=== PATIENT | male | born 1955 | race Caucasian/White ===

== ENCOUNTER 2018-07-03 12:50 | Inpatient (IN) | payer OTHER ==
[~2018-07-03] VITALS: Ht 165.1 cm; Wt 70.0 kg
--- NOTE | 2018-07-03 13:06 | NUR ---
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 SR PER MONITOR. AUTO BP AND PULSE OX IN PLACE. Addendum: 07/03/18 at 1320 by JASON PT STATED "LAEFT ARM FELT A LITTLE NUMB EARLIER AND HAS SOME HEAVINESS IN CONNOR TOES"
--- NOTE | 2018-07-03 13:12 | NUR ---
PT IN CT
[2018-07-03 13:20] LABS: BASOPHILS # (AUTO) 0.02 x10^3/uL (0-0.1); BASOPHILS % (AUTO) 0 % (0-1); EOSINOPHILS # (AUTO) 0.06 x10^3/uL (0-0.4); EOSINOPHILS % (AUTO) 1 % (1-7); LYMPHOCYTES # (AUTO) 1.12 x10^3/uL (1-3.4); LYMPHOCYTES % (AUTO) 21 % (22-44); MD NO; MEAN CORPUSCULAR HEMOGLOBIN 30.2 pg (27.5-34.5); MEAN CORPUSCULAR HGB CONC 33.2 g/dL (33.2-36.2); MEAN PLATELET VOLUME 9.2 fL (7.4-10.4); MONOCYTES # (AUTO) 0.47 x10^3/uL (0.2-0.8); MONOCYTES % (AUTO) 9 % (2-9); NEUTROPHILS # (AUTO) 3.62 x10^3/uL (1.8-6.8); NEUTROPHILS % (AUTO) 68 % (42-75); PLATELET COUNT 186 x10^3/uL (130-400); RED CELL DISTRIBUTION WIDTH 13.7 % (9.4-14.8)
--- NOTE | 2018-07-03 13:27 | NUR ---
PT RETURN TO ROOM FROM CT. PER ABRAN ALVAREZ, PT WAS IN SR WITH JOSEEMINY PVC'S AT TIMES. CURRENTLY SR WITH [facility] PAC'S NOTED. PT DENIES PAIN
[2018-07-03 13:30] LABS: PROTHROMBIN TIME 10.5 Seconds (9.6-11.5)
--- NOTE | 2018-07-03 14:04 | NUR ---
REPORT TO CARMEN ALVAREZ
--- NOTE | 2018-07-03 14:04 | NUR ---
ASSUMED CARE OF PT AT THIS TIME.
[2018-07-03] MEDS ORDERED: SODIUM CHLORIDE FLUSH 10ML SYR IVF PRN (14:30)
--- NOTE | 2018-07-03 14:52 | NUR ---
PT TO MRI
--- NOTE | 2018-07-03 14:59 | NUR ---
REPORT TO ERLINDA ALVAREZ
[2018-07-03] MEDS ORDERED: POLYETHYLENE GLYCOL 17 GM PACKET PO PRN (15:00)
[2018-07-03] MEDS ORDERED: ONDANSETRON 2MG/ML, 2ML IVPush PRN (15:00)
[2018-07-03] MEDS ORDERED: ONDANSETRON ODT 4 MG PO PRN (15:00)
[2018-07-03] MEDS ORDERED: LABETALOL 5MG/ML, 20ML IV PRN (15:00)
[2018-07-03 15:04] LABS: FREE T4 (FREE THYROXINE) 1.07 ng/dL (0.76-1.46)
[2018-07-03] MEDS ORDERED: GADOBUTROL 7.5 MMOL/7.5 ML PFS ONE (15:16)
--- NOTE | 2018-07-03 15:23 | NUR ---
MRI TO TAKE PT TO FLOOR.
[2018-07-03 15:41] LABS: THYROID STIMULATING HORMONE 1.22 mIU/L (0.358-3.740)
[2018-07-03 15:50] LABS: CHOL/HDL RATIO 2.5; LDL/HDL RATIO 1.3 (0.5-3.0)
[2018-07-03 16:56] VITALS: BP 154/84
[2018-07-03 18:56] LABS: MICROSCOPIC NOT IND
[2018-07-03 18:58] LABS: CULTURE INDICATED? NO
[2018-07-03 19:42] VITALS: BP 148/79
[2018-07-03] MEDS: ATORVASTATIN 20 MG TABLET PO SCH (20:23)
[2018-07-04 00:15] VITALS: BP 141/79
[2018-07-04] MEDS: ASPIRIN 81 MG TABLET EC PO SCH (05:22)
[2018-07-04 05:25] LABS: BASOPHILS # (AUTO) 0.02 x10^3/uL (0-0.1); BASOPHILS % (AUTO) 0 % (0-1); EOSINOPHILS # (AUTO) 0.08 x10^3/uL (0-0.4); EOSINOPHILS % (AUTO) 2 % (1-7); LYMPHOCYTES # (AUTO) 1.22 x10^3/uL (1-3.4); LYMPHOCYTES % (AUTO) 27 % (22-44); MD NO; MEAN CORPUSCULAR HEMOGLOBIN 30.8 pg (27.5-34.5); MEAN CORPUSCULAR HGB CONC 34.4 g/dL (33.2-36.2); MEAN CORPUSCULAR VOLUME 89.4 fL (81-97); MEAN PLATELET VOLUME 9.6 fL (7.4-10.4); MONOCYTES # (AUTO) 0.57 x10^3/uL (0.2-0.8); MONOCYTES % (AUTO) 13 % (2-9); NEUTROPHILS # (AUTO) 2.57 x10^3/uL (1.8-6.8); NEUTROPHILS % (AUTO) 58 % (42-75); PLATELET COUNT 183 x10^3/uL (130-400); RED BLOOD COUNT 5.17 x10^6/uL (4.38-5.82)
[2018-07-04 05:36] LABS: ALANINE AMINOTRANSFERASE 35 U/L (12-78); ANION GAP 7 mmol/L (5-15); CALCIUM 9.4 mg/dL (8.5-10.1); CHLORIDE 108 mmol/L (98-107); CREATININE 0.89 mg/dL (0.7-1.3)
[2018-07-04 05:47] LABS: ALKALINE PHOSPHATASE 100 U/L (45-117); BILIRUBIN,TOTAL 0.9 mg/dL (0.2-1.0); TOTAL PROTEIN 6.9 g/dL (6.4-8.2)
[2018-07-04 07:15] VITALS: BP 115/68
[2018-07-04] MEDS: SENNA/DOCUSATE TABLET PO SCH (09:00)
[2018-07-04] MEDS: APIXABAN 5 MG TABLET PO SCH ×2 (12:10→20:48)
[2018-07-04 13:15] VITALS: BP 151/79
--- NOTE | 2018-07-04 14:49 | NUR ---
[employer] RECOMMENDATION: PUREE/THINS -No straws -Check for pocketing -Alternate solids/liquids Whitney sheet posted Addendum: 07/04/18 at [address] Amended: Links added.
[2018-07-04 19:13] VITALS: BP 154/80
[2018-07-04] MEDS: ATORVASTATIN 20 MG TABLET PO SCH (20:48)
[2018-07-05 01:03] VITALS: BP 125/74
[2018-07-05] MEDS: ASPIRIN 81 MG TABLET EC PO SCH (05:38)
[2018-07-05 08:40] VITALS: BP 127/74
[2018-07-05] MEDS: APIXABAN 5 MG TABLET PO SCH (08:56)
[2018-07-05] MEDS: SENNA/DOCUSATE TABLET PO SCH (08:57)
[2018-07-05] MEDS ORDERED: ATOR20TA37 PO (11:27)
[2018-07-05] MEDS ORDERED: ASPI81TA45 PO (11:27)
[2018-07-05] MEDS ORDERED: APIX5TAB PO (11:27)
== END 2018-07-05 15:32 | disposition home or self-care (01) | DRG 66 ==
LOC: ED 14:42 → EDIP 14:45 → 4WST 15:33 → DCLOUNGE 07-05 14:55
PROVIDERS: ADMIT Internal Medicine; ATTEND Internal Medicine
DX: I63.411 Cerebral infarction due to embolism of right middle cerebral artery (principal); I10 Essential (primary) hypertension; R47.01 Aphasia; I48.91 Unspecified atrial fibrillation; G83.24 Monoplegia of upper limb affecting left nondominant side; K11.6 Mucocele of salivary gland; Z83.3 Family history of diabetes mellitus
CPT/HCPCS: 36415; 70450; 70496; 70498; 70553; 71045; 80047; 80053; 80061; 81003; 82607; 82962; 83605; 83735; 84100; 84145; 84439; 84443; 85025; 85610; 85730; 93005; 93306; 93880; 99285; A9585; G0378; 92523-GN

== ENCOUNTER 2018-07-22 09:59 | Day surgery (SDC) | payer OTHER ==
[~2018-07-22 09:59] MED LIST: APIX5TAB PO; ASPI81TA45 PO; ATOR20TA37 PO
[2018-07-22] MEDS ORDERED: LIDOCAINE 1%, 20ML ONE (10:49)
== END 2018-07-22 14:04 | disposition home or self-care (01) ==
LOC: CACL 09:59
PROVIDERS: ATTEND Internal Medicine Cardiovascular Disease
DX: I63.9 Cerebral infarction, unspecified (principal); I10 Essential (primary) hypertension; I48.91 Unspecified atrial fibrillation; Z98.890 Other specified postprocedural states; Z82.0 Family history of epilepsy and other diseases of the nervous system; Z79.82 Long term (current) use of aspirin; Z79.899 Other long term (current) drug therapy
CPT/HCPCS: 33285; C1764

== ENCOUNTER → 2018-09-17 | Outpatient (CLI) | payer OTHER ==
[~2018-09-17] MED LIST changes: +REGADENOSON 0.4 MG/5 ML SYRINGE ONE
== END | disposition home or self-care (01) ==
LOC: CFH 07:35
PROVIDERS: ATTEND Internal Medicine Cardiovascular Disease
DX: Z13.6 Encounter for screening for cardiovascular disorders (principal); I48.91 Unspecified atrial fibrillation
CPT/HCPCS: 78452; 93017; A9502; J2785

== ENCOUNTER 2018-10-21 12:27 | Outpatient (CLI) | payer OTHER | END 2018-10-21 23:59 | disposition home or self-care (01) | LOC: RAD 12:27 | PROVIDERS: ATTEND Otolaryngology | DX: D11.0 Benign neoplasm of parotid gland (principal) | CPT/HCPCS: 42400; 76942; 88305 ==

== ENCOUNTER → 2019-05-22 | Outpatient (CLI) | payer MEDICARE ==
[~2019-05-22] MED LIST changes: -REGADENOSON 0.4 MG/5 ML SYRINGE ONE
== END | disposition home or self-care (01) ==
LOC: CFH 12:54
PROVIDERS: ATTEND Internal Medicine Cardiovascular Disease
DX: I08.2 Rheumatic disorders of both aortic and tricuspid valves (principal); I10 Essential (primary) hypertension; E78.5 Hyperlipidemia, unspecified; I48.0 Paroxysmal atrial fibrillation
CPT/HCPCS: 93306

== ENCOUNTER 2019-06-19 07:07 | Day surgery (SDC) | payer MEDICARE ==
[~2019-06-19] VITALS: Ht 165.1 cm; Wt 72.7 kg
[2019-06-19] MEDS ORDERED: ATOR40TA78 PO (07:32)
[2019-06-19] MEDS ORDERED: LOSA25TA25 PO (07:32)
[2019-06-19 07:33] VITALS: BP 153/84
[2019-06-19] MEDS ORDERED: SODIUM CHLORIDE 0.9% 1,000 ML IV ONE (08:00)
[2019-06-19] MEDS ORDERED: PROPOFOL 10 MG/ML, 20ML ONE (08:17)
[2019-08-15] MEDS ORDERED: [UNRECOGNIZED DRUG - OTHER] PO (10:29)
[2019-08-15] MEDS ORDERED: ACET-1600 PO (10:29)
[2019-08-15] MEDS ORDERED: EO MEGA PO (10:29)
[2019-08-15] MEDS ORDERED: MULT-516 PO (10:29)
[2019-08-15] MEDS ORDERED: APIX5TAB PO (10:29)
[2019-08-15] MEDS ORDERED: ALPHA CRS PO (10:29)
[2019-08-15] MEDS ORDERED: [UNRECOGNIZED DRUG - OTHER] PO (10:29)
== END 2019-06-19 09:35 | disposition home or self-care (01) ==
LOC: CACL 07:07
PROVIDERS: ATTEND Internal Medicine Cardiovascular Disease
DX: I48.0 Paroxysmal atrial fibrillation (principal); I08.1 Rheumatic disorders of both mitral and tricuspid valves; I25.10 Atherosclerotic heart disease of native coronary artery without angina pectoris; I10 Essential (primary) hypertension; D37.030 Neoplasm of uncertain behavior of the parotid salivary glands; E78.5 Hyperlipidemia, unspecified; E66.3 Overweight; Z68.31 Body mass index [BMI] 31.0-31.9, adult; Z79.01 Long term (current) use of anticoagulants; Z79.82 Long term (current) use of aspirin; Z79.899 Other long term (current) drug therapy; Z86.73 Personal history of transient ischemic attack (TIA), and cerebral infarction without residual deficits
CPT/HCPCS: 93312; 93321; 93325; J2704

== ENCOUNTER → 2019-08-15 | Outpatient (CLI) | payer MEDICARE ==
[~2019-08-15] MED LIST changes: +ACET-1600 PO; +ALPHA CRS PO; +ATOR40TA78 PO; +EO MEGA PO; +LOSA25TA25 PO; +MULT-516 PO; +[UNRECOGNIZED DRUG - OTHER] PO; +[UNRECOGNIZED DRUG - OTHER] PO
[2019-08-15 11:23] LABS: CALCIUM 9.5 mg/dL (8.5-10.1); CHLORIDE 107 mmol/L (98-107)
[2019-08-15 11:29] LABS: ALANINE AMINOTRANSFERASE 36 U/L (12-78); ALKALINE PHOSPHATASE 100 U/L (45-117); BILIRUBIN,TOTAL 0.5 mg/dL (0.2-1.0); CREATININE 0.97 mg/dL (0.7-1.3); TOTAL PROTEIN 7.6 g/dL (6.4-8.2)
[2019-08-15 15:57] LABS: ANION GAP 5 mmol/L (5-15)
== END | disposition home or self-care (01) ==
LOC: STAR 09:40
PROVIDERS: ATTEND Otolaryngology
DX: Z01.818 Encounter for other preprocedural examination (principal); Z11.59 Encounter for screening for other viral diseases; D11.0 Benign neoplasm of parotid gland; I51.7 Cardiomegaly
CPT/HCPCS: 36415; 80053; 93005; U0001

== ENCOUNTER 2019-08-19 05:51 | Day surgery (SDC) | payer MEDICARE ==
[~2019-08-19] VITALS: Ht 162.6 cm; Wt 77.0 kg
[2019-08-19] MEDS ORDERED: LACTATED RINGERS 1,000 ML IV SCH (06:53)
[2019-08-19 06:56] VITALS: BP 131/73
[2019-08-19] MEDS ORDERED: LIDOCAINE-MPF 1%, 2ML INFIL ONE (07:00)
[2019-08-19] MEDS ORDERED: CHLORHEXIDINE 15 ML UDC MM ONE (07:00)
[2019-08-19] MEDS ORDERED: LIDOCAINE 1%-EPI 1:100K, 20ML ONE (07:41)
[2019-08-19] MEDS ORDERED: MUPIROCIN OINT 2%, 22GM ONE (07:41)
[2019-08-19] MEDS ORDERED: FAMOTIDINE 20 MG TABLET PO ONE (08:00)
[2019-08-19] MEDS ORDERED: OXYcodone IR 5MG TABLET PO ONE (08:00)
[2019-08-19] MEDS ORDERED: ACETAMINOPHEN 500 MG TABLET PO ONE (08:00)
[2019-08-19] MEDS ORDERED: OMNIPAQUE 350 MG/ML, 100ML BOTTLE ONE (08:14)
== END 2019-08-19 09:53 | disposition home or self-care (01) ==
LOC: OUT 05:51
PROVIDERS: ATTEND Otolaryngology
DX: D11.0 Benign neoplasm of parotid gland (principal); Z53.8 Procedure and treatment not carried out for other reasons; R59.0 Localized enlarged lymph nodes
CPT/HCPCS: 70491; J7120; Q9967; J3490

== ENCOUNTER → 2019-09-23 | Outpatient (CLI) | payer MEDICARE | END | disposition home or self-care (01) | LOC: PETCFH 13:18 | PROVIDERS: ATTEND Otolaryngology | DX: C07 Malignant neoplasm of parotid gland (principal); I25.10 Atherosclerotic heart disease of native coronary artery without angina pectoris; K44.9 Diaphragmatic hernia without obstruction or gangrene | CPT/HCPCS: 78815; A9552 ==

== ENCOUNTER 2019-09-25 07:30 | Outpatient (CLI) | payer MEDICARE | END 2019-09-25 23:59 | disposition home or self-care (01) | LOC: ROC 07:30 | PROVIDERS: ATTEND Radiology Radiation Oncology | DX: Z08 Encounter for follow-up examination after completed treatment for malignant neoplasm (principal); C07 Malignant neoplasm of parotid gland; I25.10 Atherosclerotic heart disease of native coronary artery without angina pectoris | CPT/HCPCS: 99214; G0463 ==

== ENCOUNTER → 2020-01-28 | Outpatient (CLI) | payer MEDICARE | END | disposition home or self-care (01) | LOC: ROC 07:30 | PROVIDERS: ATTEND Radiology Radiation Oncology | DX: C07 Malignant neoplasm of parotid gland (principal) | CPT/HCPCS: 99213; G0463 ==

== ENCOUNTER 2020-04-01 07:14 | Outpatient (CLI) | payer MEDICARE | END 2020-04-01 23:59 | disposition home or self-care (01) | LOC: ROC 07:14 | PROVIDERS: ATTEND Radiology Radiation Oncology | DX: Z08 Encounter for follow-up examination after completed treatment for malignant neoplasm (principal); C07 Malignant neoplasm of parotid gland; I25.10 Atherosclerotic heart disease of native coronary artery without angina pectoris; J32.0 Chronic maxillary sinusitis | CPT/HCPCS: 99212; G0463 ==

== ENCOUNTER 2020-05-19 06:53 | Day surgery (SDC) | payer MEDICARE ==
[~2020-05-19] VITALS: Ht 162.6 cm; Wt 70.5 kg
[2020-05-19] MEDS ORDERED: LIDOCAINE 2%, 20ML ONE (07:15)
== END 2020-05-19 08:49 | disposition home or self-care (01) ==
LOC: CACL 06:53
PROVIDERS: ATTEND Internal Medicine Cardiovascular Disease
DX: Z45.09 Encounter for adjustment and management of other cardiac device (principal); I48.0 Paroxysmal atrial fibrillation; I10 Essential (primary) hypertension; Z79.01 Long term (current) use of anticoagulants; Z79.899 Other long term (current) drug therapy
CPT/HCPCS: 33286

== ENCOUNTER 2020-07-21 08:31 | Emergency (ER) | payer MEDICARE ==
[~2020-07-21] VITALS: Ht 162.6 cm; Wt 74.0 kg
--- NOTE | 2020-07-21 08:39 | NUR ---
PT HAS NO NEURO DEFICITS. SMILE AND FACIAL EXPRESSIONS SYMMETRICAL, SPEECH CLEAR. STRENGTH EQUAL BILATERALY. 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 [facility]
--- NOTE | 2020-07-21 09:12 | NUR ---
PT OFF THE FLOOR TO CT
[2020-07-21 09:16] LABS: BASOPHILS % (AUTO) 1 % (0-1); EOSINOPHILS % (AUTO) 2 % (1-7); LYMPHOCYTES % (AUTO) 13 % (22-44); MEAN CORPUSCULAR HEMOGLOBIN 31.2 pg (27.5-34.5); MEAN CORPUSCULAR HGB CONC 34.1 g/dL (33.2-36.2); MEAN PLATELET VOLUME 8.6 fL (7.4-10.4); MONOCYTES % (AUTO) 13 % (2-9); NEUTROPHILS % (AUTO) 71 % (42-75); PLATELET COUNT 172 x10^3/uL (130-400); RED BLOOD COUNT 4.89 x10^6/uL (4.38-5.82); RED CELL DISTRIBUTION WIDTH 13.6 % (9.4-14.8)
[2020-07-21 09:18] LABS: MD NO
--- NOTE | 2020-07-21 09:18 | NUR ---
PT BACK FROM CT
[2020-07-21 09:28] LABS: ALBUMIN 4.1 g/dL (3.4-5.0); CALCIUM 9.3 mg/dL (8.5-10.1); CREATININE 0.95 mg/dL (0.7-1.3)
[2020-07-21 10:04] LABS: ANION GAP 9 mmol/L (5-15); CHLORIDE 109 mmol/L (98-107)
[2020-07-21 10:50] VITALS: BP 105/62
--- NOTE | 2020-07-21 11:00 | NUR ---
PT REC'VD DISCHARGE INSTRUCTIONS AND EDUCATION. PT HAD NO FURTHER QUESTIONS.
--- NOTE | 2020-07-21 11:10 | NUR ---
PT AMBULATED TO NM AREA, STEADY GAIT.
== END 2020-07-21 11:12 | disposition home or self-care (01) ==
LOC: ED 10:00
DX: I10 Essential (primary) hypertension (principal); R51.9 Headache, unspecified; R07.9 Chest pain, unspecified; Z79.01 Long term (current) use of anticoagulants; I48.91 Unspecified atrial fibrillation; Z86.73 Personal history of transient ischemic attack (TIA), and cerebral infarction without residual deficits
CPT/HCPCS: 36415; 70450; 71045; 80048; 82040; 83880; 85025; 85730; 99285

== ENCOUNTER 2020-08-25 08:57 | Outpatient (CLI) | payer MEDICARE | END 2020-08-25 23:59 | disposition home or self-care (01) | LOC: CARD 08:57 | PROVIDERS: ATTEND Nurse Practitioner Family | DX: I63.9 Cerebral infarction, unspecified (principal) | CPT/HCPCS: 95819 ==

== ENCOUNTER → 2020-10-15 | Outpatient (CLI) | payer MEDICARE | END | disposition home or self-care (01) | LOC: ROC 07:03 | PROVIDERS: ATTEND Radiology Radiation Oncology | DX: Z08 Encounter for follow-up examination after completed treatment for malignant neoplasm (principal); Z85.858 Personal history of malignant neoplasm of other endocrine glands; Z86.73 Personal history of transient ischemic attack (TIA), and cerebral infarction without residual deficits | CPT/HCPCS: 99212; G0463 ==